=== PATIENT | male | born 1970 | race Two or more races ===

== ENCOUNTER 2016-08-26 17:15 | Emergency (ER) | payer OTHER ==
[~2016-08-26] VITALS: Ht 157.5 cm; Wt 72.6 kg
[2016-08-26] MEDS ORDERED: TdaP Vaccine 0.5ml Syr IM ONE (18:00)
[2016-08-26] MEDS ORDERED: Norco 5mg/325mg tab PO ONE (18:00)
[2016-08-26 19:15] VITALS: BP 120/76
[2016-08-26] MEDS ORDERED: Bacitracin Oint UD TOPIC ONE (19:17)
[2016-08-26] MEDS ORDERED: ACETAMINOPHEN-1 EAC1 ORAL (19:39)
[2016-08-26] MEDS ORDERED: KEFLEX500 MG ORAL (19:39)
[2016-08-26 19:50] VITALS: BP 123/71
--- NOTE | 2016-08-26 20:18 | Emergency Room Report ---
History of Present Illness General Chief Complaint: Upper Extremity Injury Source: Patient Present Illness HPI 45-year-old male presents ED with laceration to the left hand. States that work today he cut his left hand with a grinding machine. Tetanus unknown. Patient notes bleeding from the left hand. Pain is throbbing, 8/10, nonradiating. Denies any other injuries. No other aggravating relieving factors. Denies any other associated symptoms Allergies: Coded Allergies: No Known Allergies (Unverified , 08/26/16) Patient History Past Medical History: none Past Surgical History: none Pertinent Family History: none Social History: Denies: alcohol use, drug use, smoking Immunizations: UTD Reviewed Nursing Documentation: PMH: Agreed, PSxH: Agreed Nursing Documentation-PMH Past Medical History: No Stated History Review of Systems All Other Systems: negative except mentioned in HPI Physical Exam Vital Signs Date Time Temp Pulse Resp B/P Pulse Ox O2 Delivery O2 Flow Rate FiO2 08/26/16 17:22 98.8 78 15 120/76 98 Room Air Sp02 EP Interpretation: reviewed, normal General Appearance: no apparent distress, alert, GCS 15, non-toxic Head: normocephalic Eyes: bilateral eye PERRL, bilateral eye normal inspection ENT: normal ENT inspection Neck: normal inspection Respiratory: normal inspection Cardiovascular #1: normal inspection Gastrointestinal: normal inspection Rectal: deferred Genitourinary: no CVA tenderness Musculoskeletal: back normal, gait/station normal, normal range of motion, non- tender, tender - L hand Neurologic: alert, oriented x3, responsive, motor strength/tone normal, sensory intact, speech normal Psychiatric: judgement/insight normal, memory normal, mood/affect normal, no suicidal/homicidal ideation Skin: laceration - 3cm jagged laceration to dorsum L hand extending into 2nd digit. tendon exposed but not involved Lymphatic: normal inspection Procedures Laceration/Wound Repair Laceration/Wound Repair : Consent: Verbal Wound Location: upper extremity - L hand Wound's Depth, Shape: into muscle, irregular, other - tendon exposed Wound Explored: clean Betadine Prep?: Yes Anesthesia: 1% Lidocaine Wound Debrided: minimal Wound Repaired With: sutures Suture Size/Type: 4:0, proline Layer Closure?: No Sterile Dressing Applied?: Yes Splint Applied?: No Sling Applied?: No Patient Tolerated: Well Complications: None Medical Decision Making Diagnostic Impression: Primary Impression: Hand laceration involving tendon Qualified Codes: S61.412A - Laceration without foreign body of left hand, initial encounter; S66.922A - Laceration of unspecified muscle, fascia and tendon at wrist and hand level, left hand, initial encounter ER Course Hospital Course 45-year-old M presents to ED s/p laceration L hand at work. tendon exposed Clinical course Patient placed on stretcher. After initial history and physical I ordered tetanus shot, pain meds, xray of L hand X-ray shows no foreign body, no fracture Tendon is exposed but intact. Patient has full range of motion of the left index finger Anesthesia provided with lidocaine. Laceration repaired w/o complication. Dressing applied. Diagnosis - hand laceration involving tendon Stable and discharged to home with prescription for Tylenol #3, Keflex. wound Care instructions given. Given hand referral. Return to ED if any signs of infection develop Other X-Ray Diagnostic Results Other X-Ray Diagnostic Results : X-Ray Ordered: L hand EP Interpretation: Yes Findings: no fractures, no dislocation, no soft tissue swelling Number of Views: 3 Last Vital Signs Date Time Temp Pulse Resp B/P Pulse Ox O2 Delivery O2 Flow Rate FiO2 08/26/16 19:15 98.8 78 15 120/76 98 Room Air Status: improved Disposition: HOME, SELF-CARE Condition: Stable Scripts Acetaminophen With Codeine (T#3) (TYLENOL #3 TAB*) Y Tab 1 TAB ORAL Q8H Y for For Pain, #20 TAB Prov: KOMAL DOBBINS M.D. 08/26/16 Cephalexin* (KEFLEX*) 500 Mg Capsule 500 MG ORAL Q6H, #28 CAP 0 Refills Prov: KOMAL DOBBINS M.D. 08/26/16 Referrals: SANTOS MANZO PERRY M.D. NOT CHOSEN AMANDA/,REFERRING (PCP) Departure Forms: Return to Work Return to Work Date: Aug 28, 2016 Work Restrictions: No Heavy Lifting Patient Instructions: Laceration Care, Adult, [id number] KOMAL DOBBINS M.D. Aug 26, 2016 20:18
--- NOTE | 2016-08-27 11:02 | Diagnostic Imaging Report ---
Indication: PAIN Technique: 3 views left hand Comparison: Findings: There is slight extension deformity of the fifth metacarpal phalangeal joint. No evidence of acute fractures or dislocations. Spaces are preserved. Impression: No acute bony trauma
== END 2016-08-26 19:50 | disposition home or self-care (01) ==
LOC: EMR 17:40
DX: S61.412A Laceration without foreign body of left hand, initial encounter (principal); S66.922A Laceration of unspecified muscle, fascia and tendon at wrist and hand level, left hand, initial encounter; S61.211A Laceration without foreign body of left index finger without damage to nail, initial encounter; W31.89XA Contact with other specified machinery, initial encounter; Y92.69 Other specified industrial and construction area as the place of occurrence of the external cause; Y99.0 Civilian activity done for income or pay; Z23 Encounter for immunization
CPT/HCPCS: 90471; 90715; 96372